=== PATIENT | male | born 1995 | race Caucasian/White ===

== ENCOUNTER 2021-06-14 13:50 | Emergency (ER) | payer BC ==
[~2021-06-14] VITALS: Ht 172.7 cm; Wt 68.0 kg
[2021-06-14] MEDS ORDERED: CONCERTA27 MG PO (14:19)
[2021-06-14] MEDS ORDERED: ADDERALL 5 MG TA5 MG PO (14:20)
--- OUTSIDE RECORDS SUMMARY | 2021-06-14 15:00 | XMS ---
PreManage Notification: DESHAWN URRUTIA [employer] Steward/Stewardess Events No recent Security Events currently on file CRITERIA MET - [facility] - 2 Visits in 30 Days - [facility] There are no care providers on record at this time. [place] has no Care Guidelines for this patient. Brenda VISIT COUNT (12 MO.) 1 [facility] NOTE: Visits indicate total known visits. ED/UCC VISIT TRACKING (12 MO.) [facility]14[facility]2021 13:[facility] COMPLAINT: - MEDICAL CLEARANCE 06/13/2021 22:18 [facility] OR TYPE: Emergency DIAGNOSES: - Encounter for other general examination - Hallucinogen abuse, uncomplicated - SI INPATIENT VISIT TRACKING (12 MO.) No inpatient visits to display in this time frame [email or web address]
--- NOTE | 2021-06-15 07:20 | EKG ---
[facility] [address] [facility] [place] [address] Signed Normal sinus rhythm with sinus arrhythmia Minimal voltage criteria for LVH, may be normal variant ST elevation, consider early repolarization, pericarditis, or injury Abnormal ECG No previous ECGs available Confirmed by LILIAN CRAFT MD ([id number] on 06/15/2021 7:20:17 AM Electronically Signed By: LILIAN CRAFT MD 06/15/21 0720 PATIENT NAME: DESHAWN URRUTIA Electrocardiogram DATE OF : [birth year] PHYSICIAN: LILIAN CRAFT MD REPORT #: [id number] REPORT IS CONFIDENTIAL AND NOT TO BE RELEASED WITHOUT AUTHORIZATION
== END 2021-06-15 15:30 ==
LOC: ED 13:50
DX: R44.3 Hallucinations, unspecified (principal); R45.851 Suicidal ideations; F19.90 Other psychoactive substance use, unspecified, uncomplicated; F17.200 Nicotine dependence, unspecified, uncomplicated; Z88.0 Allergy status to penicillin; Z79.899 Other long term (current) drug therapy; Z20.822 Contact with and (suspected) exposure to COVID-19
CPT/HCPCS: 80053; 81001; 82553; 84443; 84484; 85025; 93005; 93010; 99285-25; C9803; G0480; U0003